=== PATIENT | female | born 1935 | race Caucasian/White ===

== ENCOUNTER 2023-11-03 09:27 | Emergency (ER) | payer MEDICARE, SELFPAY ==
[2023-11-03 09:29] VITALS: BP 118/83
[2023-11-03 09:56] VITALS: BMI 40.4
--- NOTE | 2023-11-03 10:09 | ED.GENMED ---
History of Present Illness
General
Chief Complaint: Back Pain
Source: patient and other (brothers girlfriend)
Time Seen by Provider: 11/03/23 09:45
History of Present Illness
History of Present Illness:
This is an 88yo female who presents with pain from R buttocks down R leg. Patient states the pain has been ongoing for 1 to 2 weeks. She states she was dealing with some dental issues so sort of ignored it. The pain is not really there when she
lays down or sleeps but is worse when she tries to stand up and when she is moving around. The patient does not take NSAIDs because it upsets her stomach. She has been taking Tylenol without much relief. No new motor weakness. She has baseline
incontinence but no new bowel incontinence or perineal anesthesia
Past History
Past History
ED Past Medical History: Cancer (Breast cancer), HTN and Other (PE, peripheral neuropathy)
ED Past Surgical History: Cholecystectomy and Other (Mastectomy)
Social History
Tobacco: Non-smoker
Alcohol: None
Drug: None
Personal: (Noncontributory)
Living: with family
Employment: Retired
Family History
Family History: Other (Noncontributory)
Phy Exam
Physical Exam
Physical Exam:
CONSTITUTIONAL Vital signs reviewed, Patient alert and oriented to person, place and time. Well-appearing
HEAD atraumatic, normocephalic.
EYES eyelids normal to inspection, Extraocular muscles intact, Conjunctiva normal, Sclera normal.
NECK normal range of motion, Trachea midline, no jugular venous distention.
RESP no respiratory distress
BACK No obvious deformities
UPPER EXTREMITY Gross Range of motion normal, gross motor strength normal
LOWER EXTREMITY Gross range of motion normal, Gross motor strength normal, positive straight leg raise at 45 degrees, normal distal perfusion bilaterally
NEURO Speech normal, No focal motor deficits include, Bess coma scale 15, Memory normal, Cranial Nerves intact to screening exam.
SKIN Skin warm, dry, and normal in color.
PSYCHIATRIC Patient oriented to person place and time, Normal affect.
Course
Orders/Labs/Results
Orders:
Orders
11/03/23 10:09
Prednisone [Deltasone] 50 mg PO NOW STA
Vital Signs
Initial and Last Documented VS:
Initial Vital Signs
Temp Pulse Resp BP Pulse Ox
98.1 F 83 18 118/83 95
11/03/23 09:29 11/03/23 09:29 11/03/23 09:29 11/03/23 09:29 11/03/23 09:29
Last Documented Vital Signs
Temp Pulse Resp BP Pulse Ox
98.1 F 83 18 118/83 95
11/03/23 09:29 11/03/23 09:29 11/03/23 09:29 11/03/23 09:29 11/03/23 09:29
MDM/Problems Addressed
Differential Diagnosis Includes:
Arterial insufficiency, lumbar radiculopathy/sciatica, DVT
MDM/Problems Addressed:
Lumbar radiculopathy
*Pulse Oximetry
Patient hypoxic: no
*Critical Care Note
Total Time (30-74mins, 75-104mins- exclusive of procedures): Not Applicable
Data Reviewed
Source: patient and family
Prescriptions/Medications Considered But Not Given:
Considered NSAIDs but given her age and history of GI upset with NSAIDs, avoid and treat with steroids
Patient Management
Escalation/DeEscalation of care consider admission/obs:
Clearly with neuropathic pain. Treat with course of steroids and recommended close outpatient follow-up. Narcotic pain medication as needed for severe pain
ED Attending Note
-
Portions of this chart may have been created with voice recognition software.� Occasional wrong word or��sound alike� substitutions may have occurred due to the inherent limitations of voice recognition software.
Discharge Plan
Departure
Patient Disposition: Home (Routine Discharge)
Date of Disposition: 07/10/24
Time of Disposition: 10:10
Patient with high blood pressure during this ER visit?: No
Discharge Problem:
Acute lumbar radiculopathy
Instructions: Sciatica (DC)
Prescriptions:
New
hydrocodone-acetaminophen 5-325 mg tablet
1 tab PO Q8H PRN (Reason: Pain) Qty: 14 0RF
prednisone 10 mg Tablet
See Rx Instructions .ROUTE .COMPLEX Qty: 45 0RF
Rx Instructions:
Take By Mouth:
50 mg daily x3 days, 40 mg daily x3 days,
30 mg daily x3 days, 20 mg daily x3 days,
10 mg daily x3 days
No Action
levothyroxine [Synthroid] 137 MCG tablet
137 tab PO DAILY AT 0700
cyanocobalamin (vitamin B-12) 1,000 MCG tablet
1,000 mcg PO DAILY
melatonin 3 MG tablet
3 mg PO HS
gabapentin 100 MG capsule
100 mg PO HS
docosahexaenoic acid-epa 1 CAP capsule
1 cap PO BID
multivitamin with folic acid [Tab-A-Keith] 1 TABLET tablet
1 tab PO DAILY
hydrochlorothiazide 25 MG tablet
25 mg PO DAILY
pantoprazole 40 MG tablet,delayed release (DR/EC)
40 mg PO DAILY Qty: 30 0RF
cholecalciferol (vitamin D3) 2,000 UNITS tablet
2,000 units PO DAILY Qty: 14 0RF
calcium carbonate 500 mg calcium (1,250 mg) Tablet
500 mg PO DAILY
lidocaine [Aspercreme (lidocaine)] 1 PATCH adhesive patch,medicated
1 patch topical QPM
acetaminophen [Tylenol Extra Strength] 500 MG tablet
1,000 mg PO BID
polyethylene glycol 3350 17 gram Powder In Packet
17 g PO DAILY Qty: 14 0RF
cephalexin 500 mg capsule
500 mg PO Q12H 5 Days Qty: 10 0RF
Referrals:
UNKNOWN - PT DOES,NOT KNOW [Family Provider] -
Activity Restrictions/Additional Instructions:
Please see your doctor in follow-up in the next 1 week. Return immediately for worsening pain, motor weakness, numbness, tingling or any other concerns.
Interventions
Interventions:
*Risk Screen - Suicide Last Done: 11/03/23 09:29
*General Assessment Last Done: 11/03/23 09:56
*Neglect/Abuse Screening Last Done: 11/03/23 09:29
ED-Musculoskeletal Assessment Last Done: 11/03/23 09:56
Discharge Date and Time
Print Language: MALAWIAN
[2023-11-03] MEDS: DELTASONE 50 MG PO (10:14)
== END 2023-11-03 10:38 | disposition home or self-care (01) ==
LOC: EMR 09:27
PROVIDERS: EMERGENCY PHYSICIAN Emergency Medicine
DX: M54.16 Radiculopathy, lumbar region (principal)
CPT/HCPCS: 99283